=== PATIENT | female | born 1985 | race Caucasian/White ===

== ENCOUNTER 2024-09-30 10:25 | Outpatient (CLI) | payer OTHER, SELFPAY ==
--- NOTE | ~2024-09-30 | XR_ITS ---
EXAM: XR scoliosis survey DATE: 09/30/2024 10:57 HISTORY: BACK PAIN . COMPARISON: None available. FINDINGS: The lungs are clear. Normal cardiomediastinal silhouette. IUD over the pelvis, otherwise no rmal abdominopelvic radiographic findings. Normal mineralization. Mild anterior wedge deformity of T12. No lytic or blastic lesion. Joint spaces are maintained. No erosion or periosteal change. Soft tissues within normal limits. 12 paired ribs. 12 thoracic type vertebral bodies. 5 lumbar-type nonrib-bearing vertebral bodies. Ris ser stage V. Severe midthoracic scoliosis, convexity facing right, apex at T7. Castellanos angle 59 degrees. End vertebral bodies at T5 and T9. Exaggerated thoracic kyphosis and lumbar lordosis. The C7 plumbli ne passes 5.4 cm posterior to S1 and the lateral view and 3.1 cm the left of the midline sacrum in th e frontal view. The left femoral head measures 8 mm shorter than the right. IMPRESSION: Severe thoracic dextroscoliosis, Castellanos angle 59 degrees. Negative sagittal and coronal bal ance. Leg length discrepancy. Reviewed, dictated and finalized at location K. IMPRESSION: Severe thoracic dextroscoliosis, Castellanos angle 59 degrees. Negative sa gittal and coronal balance. Leg length discrepancy.
--- OUTSIDE RECORDS SUMMARY | 2024-09-30 10:46 | XMS_ITS | Continuity of Care Document ---
Author Organization [facility] Address [address] [place] [address] Phone Care Team Providers [employer] Act[employer] Name Role Phone Obinna Summers MD Unavailable Unavailable Allergies, Adverse Reactions, Alerts Substance Reaction Status Criticality No Known Allergies Active No Inform ation Medications Medication Instructions Dosage Effective Dates (start - stop) Status Comments cyclobenzaprine 10 mg tablet take 1 tablet by oral route 2 times every day as needed 10 MG - Active avoid drivin g or operate machines, PRN for pain Procedures Procedure Date PREV VISIT, NEW, AGE 18-39 Advance Directives Directive Yes / No Effective Date File Name No Information Encounters Encounter Description Practice Location Reason(s) For Visit Diagnoses Date Provider Providers Copied on Encounter PREV VISIT, NEW, AGE 18-39 [facility], [address] [place], [id number], tel:[phone] [facility] Medicine physical (chief complaint) Encounter for general adult medical examination without abnormal findings Kristopher Yeboah. [address] [place], [id number], [place]. tel:[phone] [facility], [address] [place], [place], [id number], [place] tel:[phone] [facility] No Information Kristopher Yeboah. [address] [facility] [place], [id number], [place]. tel:[phone] Family History Family Member Type Diagnosis Age At Onset Brother Problem Alive and well Mother Problem Asthma Father Problem of melanoma 45 Payers Payer name Insurance type Covered alliance party ID Kev mackenzie(s) [facility] [id number] Social History Type Description Quantity Date Captured Comments Alcohol Use Details beer & wine Caffeine Use Details Unknown Tobacco Use Status Moderate cigarette s moker (10-19 cigs/day) Smoking Status Heavy tobacco smoker Sex Female Vital Signs Date / Time: Height Weight BMI Pulse Rate Blood Pressure Temperature Respiratory Rate Body Surface Area Head Circumference BMI percentile Pulse Ox Inhaled Ox 10:29 AM 64.50 in 156.60 lbs 26.4 7 kg/m eter (2) 60 /min 113/67 mm[Hg] 98.8 F 16 /min Chief Complaint And Reason For Visit From encounter dated '09/30/2024 10:29'. physical (chief complaint). Description: Pt needs annual physical pt has scoliosis since childhood around T spine area. Pt was not pan to wear brace and get treated when she was young. Pt has been c/o rather severe left side mid back pain since about 4 months ago which is getting worse. Pt also has some generalized T and L spine pain as well. Pt denies any sciatica pt denies any loss of bowel orbladder control or saddle area paresthesia Pt denies any injury Pt denies any sob or chest pain Pt states that pain is present at all time but worse with movement and lifting. Pt also gained some weight recently Plan Of Treatment Date Type Action Status Goal Tobacco cessation counseling completed Referral Ordered: SCIOLIOSIS-SUPINE XRAY ordered History Of Present Illness Encounter Date Complaint History Of Prese nt Illness physical Pt needs annual physical pt has scoliosis since childhood around T spine area. Pt was not pan to wear brace and get treated when she was young. Pt has been c/o rather severe left side mid back pain since about 4 months ago which is getting worse. Pt also has some generalized T and L spine pain as well. Pt denies any sciatica pt denies any loss of bowel or bladder control or saddle area paresthesia Pt denies any injury Pt denies any sob or chest pain Pt states that pain is present at all time but worse with movement and lifting. Pt also gained some weight recently Instructions Date Instruction Additional Infor mation No Information Assessments Type Assessment Date assessment Encounter for genera l adult medical examination without abnormal findings Mental Status Date Cognitive Assessment Orientation - [place] ed to time, place, person, situation.
== END 2024-09-30 10:26 | disposition home or self-care (01) ==
PROVIDERS: Visit Provider Emergency Medicine
DX: M41.84 Other forms of scoliosis, thoracic region (principal)
CPT/HCPCS: 72082